=== PATIENT | female | born 1935 | race Caucasian/White ===

== ENCOUNTER 2023-01-18 09:26 | Day surgery (SDC) | payer MEDICARE, BC ==
[2023-01-14 10:31] LABS: BASOPHILS % (AUTO) 0.5 % (0-1); EOSINOPHILS # (AUTO) 0.1 X10'3 (0-0.9); EOSINOPHILS % (AUTO) 1.6 % (0-6); LYMPHOCYTES # (AUTO) 1.6 X10'3 (1.1-4.8); LYMPHOCYTES % (AUTO) 17.5 % (21-51); MEAN CORPUSCULAR HEMOGLOBIN 33.1 PG (27.0-31.0); MEAN CORPUSCULAR VOLUME 97.5 FL (78-98); MEAN PLATELET VOLUME 6.6 FL (7.4-10.4); MONOCYTES # (AUTO) 0.7 X10'3 (0-0.9); MONOCYTES % (AUTO) 7.5 % (2-12); NEUTROPHILS # (AUTO) 6.5 X10'3 (1.8-7.7); NEUTROPHILS % (AUTO) 72.9 % (42-75); PRE OP HEMATOCRIT 36.1 % (35.0-45.0); PRE OP HEMOGLOBIN 12.3 g/dL (12.0-16.0); PRE OP PLATELET COUNT 344 X10'3 (140-440); PRE OP WHITE BLOOD COUNT 8.9 10'3 (4.8-10.8); RED CELL DISTRIBUTION WIDTH 14.4 % (11.5-14.5)
[2023-01-14 10:56] LABS: ALBUMIN 3.4 G/DL (3.4-5.0); ALBUMIN/GLOBULIN RATIO 0.8 (1.1-1.5); ALKALINE PHOSPHATASE 129 IU/L (46-116); BLOOD UREA NITROGEN 14 MG/DL (7-18); BUN/CREATININE RATIO 15.4 (10.0-20.0); CALCIUM 9.4 MG/DL (8.5-10.1); CHLORIDE 103 MMOL/L (99-107); CREATININE 0.91 MG/DL (0.40-0.90); PRE OP ALT 13 U/L (30-65); PRE OP ANION GAP 7 (8-16); PRE OP AST 12 U/L (10-37); PRE OP BILIRUB, TOTAL 0.4 MG/DL (0.0-1.0); PRE OP GLUCOSE 85 MG/DL (70-104); PRE OP POTASSIUM 4.2 MMOL/L (3.4-5.1); PRE OP SODIUM 137 MMOL/L (135-145); TOTAL CARBON DIOXIDE 27.2 MMOL/L (24-32); TOTAL PROTEIN 7.5 G/DL (6.4-8.2); eGFR 58 ML/MIN
[2023-01-18] VITALS (12 sets, daily range): BP systolic 120–163; BP diastolic 70–90; PULSE 66–94; RESP 9–16; TEMP 97.5; O2SAT 91–97
[~2023-01-18] VITALS: Ht 157.5 cm; Wt 57.1 kg
[~2023-01-18 09:26] MED LIST: AMIT75TA7 PO; AMLO5TAB16 PO; DOCUMENT DATE & TIME OF BETA-BLOCKER PO ONE; LEVO100T9 PO; OMEP40CA21 PO; PRAV20TA4 PO; PROP40TA72 PO; cefazolin 2gm/D5W 100mL 100 ML IV ONE; famotidine 20mg tablet PO ONE; ringers solution, lacted 1,000 ML IV SCH
[2023-01-18] MEDS ORDERED: cloNIDine hcl/PF 100mcg/ml inj ONE (10:27)
[2023-01-18] MEDS ORDERED: ringers solution, lacted 1,000 ML IV SCH (10:30)
[2023-01-18] MEDS ORDERED: hydrALAZINE 20mg/ml inj. IV PRN (10:30)
[2023-01-18] MEDS ORDERED: proCHLORperazine 10 MG/2 ml inj IV PRN (10:30)
[2023-01-18] MEDS ORDERED: acetaminophen 1,000mg/100ml IV 100 ML IV ONE (10:30)
[2023-01-18] MEDS ORDERED: labetalol 20mg/4ml (5mg/ml) syringe IV PRN (10:30)
[2023-01-18] MEDS ORDERED: morphine 2 MG/ML inj. syringe IV PRN (10:30)
[2023-01-18] MEDS ORDERED: morphine 4 MG/ML inj SYRINge IV PRN (10:30)
[2023-01-18] MEDS ORDERED: ondansetron/PF 4mg/2ml inj IV PRN (10:30)
[2023-01-18] MEDS ORDERED: meperidine/PF 25mg/ml syringe IV PRN ×3 (10:30)
[2023-01-18] MEDS ORDERED: BUPIVAcaine 2.5mg/ml inj 50ml vial (contains preservative) ONE (11:11)
[2023-01-18] MEDS ORDERED: sevoflurane 250ml liquid IH ONE (11:45)
[2023-01-18] MEDS ORDERED: fentaNYL/PF 50MCG/1 ML 2ML syringe ONE (11:58)
[2023-01-18] MEDS ORDERED: propofol inj 20 ML IV ONE (12:32)
[2023-01-18] MEDS ORDERED: midazolam 1 mg/ML 2ml injection ONE (12:32)
[2023-01-18] MEDS ORDERED: LIDOcaine 1%/PF 5ML 10 MG/ML VIAL ONE (12:32)
[2023-01-18] MEDS ORDERED: ondansetron/PF 4mg/2ml inj ONE (12:32)
[2023-01-18] MEDS ORDERED: dexamethasone sod phosphate 4mg/ml inj. ONE (12:32)
[2023-01-18] MEDS ORDERED: ROPIVAcaine 0.5% (5mg/ml) 30ml vial ONE (12:32)
[2023-01-18] MEDS ORDERED: 0.9 % SODIUM CHLORIDE 10 ML VIAL ONE (12:32)
[2023-01-18] MEDS ORDERED: ePHEDrine 50MG/ML INJ. ONE (12:32)
== END 2023-01-18 14:46 | disposition home or self-care (01) ==
LOC: PAS 09:26
PROVIDERS: ATTEND Orthopaedic Surgery Hand Surgery
DX: S52.392A Other fracture of shaft of radius, left arm, initial encounter for closed fracture (principal); S52.572A Other intraarticular fracture of lower end of left radius, initial encounter for closed fracture; J44.9 Chronic obstructive pulmonary disease, unspecified; G89.18 Other acute postprocedural pain; E78.5 Hyperlipidemia, unspecified; K21.9 Gastro-esophageal reflux disease without esophagitis; Z72.89 Other problems related to lifestyle; Z79.899 Other long term (current) drug therapy; Z98.890 Other specified postprocedural states; Z90.710 Acquired absence of both cervix and uterus; Z87.440 Personal history of urinary (tract) infections; W18.30XA Fall on same level, unspecified, initial encounter; Y93.89 Activity, other specified; Y92.89 Other specified places as the place of occurrence of the external cause; Y99.8 Other external cause status
CPT/HCPCS: 25515; 36415; 64417; 80053; 82948; 85025; 93005; C1713; J0690; J0735; J1100; J2250; J2405; J2704; J2795; J3010; J3490; J7030; J7120; Z7506; Z7508; Z7512; A4215; A4618; A6449; A7000